=== PATIENT | male | born 1965 | race Caucasian/White ===

== ENCOUNTER 2018-05-11 12:26 | Emergency (ER) | payer OTHER ==
[2018-05-11] MEDS ORDERED: NA CHLORIDE 0.9% 1,000 ML ONE (14:02)
[2018-05-11 14:08] LABS: Absolute Lymphocytes (CBC) 0.6 K/uL (0.7-4.9); Absolute Monocytes 1.1 K/uL (0.1-1.3); Absolute Neutrophil 10.3 K/uL (1.8-8.0); Basophils % 0.3 % (0-1.3); Eosinophils % 0.2 % (0-4.4); Hematocrit 46.7 % (39.6-49.0); Lymphocytes % 4.7 % (15.3-44.8); MCH 31.1 pg (27.0-35.0); MCV 89.6 fL (80-100); MPV 8.7 fL (7.6-11.3); RBC Red Blood Cell Count 5.21 M/uL (4.33-5.43)
[2018-05-11 15:11] LABS: Potassium 4.4 mmol/L (3.5-5.1)
[2018-05-11 15:13] LABS: Blood Morphology Comment NOT SEEN (NOT SEEN); Platelet Estimate ADEQ; Urine White Blood Cell Casts OK
[2018-05-11] MEDS ORDERED: LORazepam 2 MG/ML VIAL ONE (16:26)
[2018-05-11] MEDS ORDERED: DEXAMETHASONE 10 MG/ML VIAL ONE (16:26)
--- NOTE | 2018-05-11 17:02 | RAD REPORT ---
EXAM DESCRIPTION: CT - Soft Tissue Neck W/Contr - 05/11/2018 4:48 pm CLINICAL HISTORY: Sore throat, left ear pain TECHNIQUE: During dynamic enhancement using 100 milliliters nonionic IV contrast, axial 5 millimeter thick images of the neck were obtained. All CT scans are performed using dose optimization technique as appropriate and may include automated exposure control or mA/KV adjustment according to patient size. FINDINGS: Intracranial portion of the examination is unremarkable. No globe or orbital content abnor mality. Mastoid air cells and paranasal sinuses are clear. No middle ear opacification. No vascular abnormality seen. The parotid, submandibular and thyroid gland tissues are normal. No nasopharyngeal mucosal abnormality. No epiglottis thickening. No tongue base abnormality. Right-si de tonsil is normal. Patient has prominent soft tissue swelling or thickening involving the left tons il and extending inferiorly along the lateral and midline posterior soft tissues. The soft tissue swe lling and thickening extend inferiorly to the level of the vocal cords. No vocal cord involvement. Ce ntrally within the soft tissue swelling is a 4 cm CC x 1.5 centimeter diameter focal fluid collection . No air in the soft tissues. No foreign body. There are multiple left-sided reactive lymph nodes 15 mm or less in size. IMPRESSION: 4 cm CC x 1.5 centimeter diameter abscess in the inferior left tonsil extending inferior ly in the left posterolateral pharyngeal soft tissues to the level of the vocal cords. No epiglottis or laryngeal involvement.
--- NOTE | 2018-05-11 17:45 | ER ---
Nurse's Notes [facility] Name: Tolu Washington Age: 53 yrs Sex: Male : 1965 Arrival Date: 05/11/2018 Time: 12:32 Bed 9 Private MD: Diagnosis: Retropharyngeal and parapharyngeal abscess Presentation: 05/11 12:33 Presenting complaint: Patient states: Sore throat and left ear pain 10/10 x 3 days. hb Seen at urgent care on Monday, flu and strep negative, started on amoxicillin, changed to clindamycin on Monday. Transition of care: patient was not received from another setting of care. Onset of symptoms was May 08, 2018. Risk Assessment: Do you want to hurt yourself or someone else? Patient reports no desire to harm self or others. Care prior to arrival: None. 12:33 Method Of Arrival: Ambulatory hb 12:33 Acuity: EMMY 3 iw 12:33 Initial Sepsis Screen: Does the patient meet any 2 criteria? Does the patient have a iw suspected source of infection? No. Patient's initial sepsis screen is negative. Triage Assessment: 18:04 General: Appears in no apparent distress. Behavior is calm, cooperative. iw Historical: - Allergies: 12:34 No Known Allergies; hb - Immunization history:: Adult Immunizations up to date. - Social history:: Smoking status: Patient/guardian denies using tobacco. - Ebola Screening: : No symptoms or risks identified at this time. Screenin:34 Abuse screen: Denies threats or abuse. Denies injuries from another. Nutritional hb screening: No deficits noted. Tuberculosis screening: No symptoms or risk factors identified. Fall Risk None identified. Assessment: 13:54 Reassessment: Patient appears in no apparent distress at this time. Patient and/or iw family updated on plan of care and expected duration. Pain level reassessed. IV in place, call light within reach, light dimmed for pr comfort. 16:06 Reassessment: Patient appears in no apparent distress at this time. Patient and/or iw family updated on plan of care and expected duration. Pain level reassessed. Patient is alert, oriented x 3, equal unlabored respirations, skin warm/dry/pink. pt denies need for pain medication at this time. 17:44 Reassessment: Patient appears in no apparent distress at this time. Patient and/or iw family updated on plan of care and expected duration. Pain level reassessed. Patient is alert, oriented x 3, equal unlabored respirations, skin warm/dry/pink. Patient states feeling better. 19:43 Reassessment: Patient appears in no apparent distress at this time. Patient is alert, aa1 oriented x 3, equal unlabored respirations, skin warm/dry/pink. [facility] present for pt transfer. Vital Signs: 12:32 BP 167 / 99; Pulse 86; Resp 18 S; Temp 97.3; Pulse Ox 97% on R/A; Pain 10/10; iw 16:06 BP 127 / 80; Pulse 77; Resp 16 S; Temp 99.1(O); Pulse Ox 97% on R/A; iw 19:43 BP 133 / 76; Pulse 76; Resp 16; Temp 98.9; Pulse Ox 97% on R/A; aa1 ED Course: 12:32 Patient arrived in ED. hb 12:33 Triage completed. hb 12:34 Arm band placed on left wrist. hb 12:35 Patient has correct armband on for positive identification. iw 12:39 Marlen Hector FNP-C is PHCP. snw 12:39 Juan Lott MD is Attending Physician. snw 13:32 Radiology exam delayed due to lab results not completed at this time. (BUN/Creatinine). vr 13:36 Diane Canales, RN is Primary Nurse. iw 13:45 Initial lab(s) drawn, by me, sent to lab. First set of blood cultures drawn. Inserted iw saline lock: 20 gauge in right antecubital area, using aseptic technique. Blood collected. 13:54 No provider procedures requiring assistance completed. iw 14:07 Radiology exam delayed due to lab results not completed at this time. (BUN/Creatinine). vr 14:32 Radiology exam delayed due to lab results not completed at this time. (BUN/Creatinine). nj 14:52 Radiology exam delayed due to lab results not completed at this time. (BUN/Creatinine). vr 14:57 Lab(s) recollected, by me, sent to lab. iw 16:49 CT completed. Patient tolerated procedure well. Patient moved to CT via wheelchair. tx Patient moved back from CT. 17:05 CT Soft Tissue Neck W/contr In Process Unspecified. EDMS 19:43 Patient transferred, IV remains in place. aa1 Administered Medications: 14:00 Drug: NS 0.9% 1000 ml Route: IV; Rate: 125 ml/hr; Site: right antecubital; hb 19:46 Follow up: IV Status: Infusion continued upon transfer aa1 16:25 Drug: Ativan 1 mg Route: IVP; Site: right antecubital; iw 19:46 Follow up: Response: No adverse reaction; Marked relief of symptoms aa1 16:25 Drug: Decadron - Dexamethasone 10 mg Route: IVP; Site: right antecubital; iw 19:46 Follow up: Response: No adverse reaction; Marked relief of symptoms aa1 Outcome: 17:44 ER care complete, transfer ordered by MD. snw 19:43 Transferred by ground EMS Transfer form completed. aa1 19:43 Condition: good 19:43 Instructed on the need for transfer, Demonstrated understanding of instructions. 19:46 Patient left the ED. aa1 Signatures: Dispatcher [employer] Geraldine Hutton RN RN aa1 Marlen Hector, HADOOP ADMINISTRATOR-C HADOOP ADMINISTRATOR-Csnw Diane Canales RN RN Rebecca Gil Heather, RN RN Amos Booth Corrections: (The following items were deleted from the chart) 12:36 12:33 Presenting complaint: Patient states: Sore throat and left ear pain 10/10 x 3 hb days hb 13:54 12:32 BP 167 / 99; Pulse 86bpm; Resp 84bpm; Pulse Ox 97% RA; Temp 97.3F; Pain 10/10; hb iw 17:44 17:44 Discharged to home with family, iw 1744 17:44 Condition: good iw 1744 17:44 Discharge instructions given to family, Instructed on discharge instructions, iw follow up and referral plans. Demonstrated understanding of instructions, follow-up care, 18:04 12:33 Acuity: EMMY 4 hb iw
--- NOTE | 2018-05-11 17:45 | EDPHYS ---
Physician Documentation [facility] Name: Tolu Washington Age: 53 yrs Sex: Male : 1965 Arrival Date: 05/11/2018 Time: 12:32 Bed 9 Private MD: ED Physician Juan Lott HPI: 05/11 15:01 This 53 yrs old Male presents to ER via Ambulatory with complaints of Ear snw Pain, Sore Throat. 15:01 The patient presents with pain, that is acute. The complaints affect the left ear. snw Onset: The symptoms/episode began/occurred gradually, 4 day(s) ago, and became worse and became persistent. Associated signs and symptoms: Pertinent positives: left lateral neck with tender anterior cervical lymph nodes. Severity of symptoms: At their worst the symptoms were moderate severe. The patient has not experienced similar symptoms in the past. x 2, started antibiotics and then it was changed to a different one. Historical: - Allergies: 12:34 No Known Allergies; hb - Immunization history:: Adult Immunizations up to date. - Social history:: Smoking status: Patient/guardian denies using tobacco. - Ebola Screening: : No symptoms or risks identified at this time. ROS: 15:00 Constitutional: Negative for fever, chills, and weight loss, Eyes: Negative for injury, snw pain, redness, and discharge, Cardiovascular: Negative for chest pain, palpitations, and edema, Respiratory: Negative for shortness of breath, cough, wheezing, and pleuritic chest pain, Abdomen/GI: Negative for abdominal pain, nausea, vomiting, diarrhea, and constipation, Back: Negative for injury and pain, : Negative for injury, bleeding, discharge, and swelling, MS/Extremity: Negative for injury and deformity, Skin: Negative for injury, rash, and discoloration, Neuro: Negative for headache, weakness, numbness, tingling, and seizure, Psych: Negative for depression, anxiety, suicide ideation, homicidal ideation, and hallucinations. 15:00 ENT: Positive for ear pain. 15:00 Neck: Positive for swollen nodes, tenderness. Exam: 14:47 Constitutional: This is a well developed, well nourished patient who is awake, alert, snw and in no acute distress. Head/Face: Normocephalic, atraumatic. Eyes: Pupils equal round and reactive to light, extra-ocular motions intact. Lids and lashes normal. Conjunctiva and sclera are non-icteric and not injected. Cornea within normal limits. Periorbital areas with no swelling, redness, or edema. Chest/axilla: Normal chest wall appearance and motion. Nontender with no deformity. No lesions are appreciated. Cardiovascular: Regular rate and rhythm with a normal S1 and S2. No gallops, murmurs, or rubs. Normal PMI, no JVD. No pulse deficits. Respiratory: Lungs have equal breath sounds bilaterally, clear to auscultation and percussion. No rales, rhonchi or wheezes noted. No increased work of breathing, no retractions or nasal flaring. Abdomen/GI: Soft, non-tender, with normal bowel sounds. No distension or tympany. No guarding or rebound. No evidence of tenderness throughout. Back: No spinal tenderness. No costovertebral tenderness. Full range of motion. Skin: Warm, dry with normal turgor. Normal color with no rashes, no lesions, and no evidence of cellulitis. MS/ Extremity: Pulses equal, no cyanosis. Neurovascular intact. Full, normal range of motion. Neuro: Awake and alert, GCS 15, oriented to person, place, time, and situation. Cranial nerves II-XII grossly intact. Motor strength 5/5 in all extremities. Sensory grossly intact. Cerebellar exam normal. Normal gait. Psych: Awake, alert, with orientation to person, place and time. Behavior, mood, and affect are within normal limits. 14:47 ENT: External ear(s): are unremarkable, Ear canal(s): are normal, TM's: are normal, Examination of the other ear shows no obvious abnormality, left post-auricular tenderness, Nose: is normal, Mouth: is normal, Posterior pharynx: erythema, Voice: is normal. 14:47 Neck: External neck: is normal, Thyroid: appears normal, Trachea: is midline with no obvious abnormalities, Lymph nodes: lymphadenopathy is appreciated, anterior cervical nodes, post auricular nodes, left. Vital Signs: 12:32 BP 167 / 99; Pulse 86; Resp 18 S; Temp 97.3; Pulse Ox 97% on R/A; Pain 10/10; iw 16:06 BP 127 / 80; Pulse 77; Resp 16 S; Temp 99.1(O); Pulse Ox 97% on R/A; iw 19:43 BP 133 / 76; Pulse 76; Resp 16; Temp 98.9; Pulse Ox 97% on R/A; aa1 MDM: 13:07 Patient medically screened. snw 15:35 Data reviewed: vital signs, nurses notes. Data interpreted: Pulse oximetry: on room air snw is 97 %. Interpretation: normal. 15:36 ED course: pt to CT via WC. snw 16:13 Physician consultation: Juan Lott MD in the emergency department to see patient at snw 16:13, encouraged pt to have scan as ordered, will pre-medicate. 17:42 Physician consultation: Dr. Hui Cardoso was called at 17:38, was contacted at 17:42, sn regarding regarding transfer, to [facility]. Dr. Cardoso (ENT) kindly accepts pt in transfer to ED. 05/11 13:23 Order name: CBC with Diff; Complete Time: 15:29 snw 05/11 13:23 Order name: Chem 7; Complete Time: 15:29 snw 05/11 13:23 Order name: CT Soft Tissue Neck W/contr; Complete Time: 17:24 snw 05/11 13:23 Order name: Blood Culture* snw 05/11 14:28 Order name: CBC Smear Scan; Complete Time: 15:29 EDMS Administered Medications: 14:00 Drug: NS 0.9% 1000 ml Route: IV; Rate: 125 ml/hr; Site: right antecubital; hb 19:46 Follow up: IV Status: Infusion continued upon transfer aa1 16:25 Drug: Ativan 1 mg Route: IVP; Site: right antecubital; iw 19:46 Follow up: Response: No adverse reaction; Marked relief of symptoms aa1 16:25 Drug: Decadron - Dexamethasone 10 mg Route: IVP; Site: right antecubital; iw 19:46 Follow up: Response: No adverse reaction; Marked relief of symptoms aa1 Disposition: 05/12 00:12 Co-signature as Attending Physician, Juan Lott MD I agree with the assessment and kdr plan of care. Disposition: 05/11/18 17:44 Transfer ordered to [facility]. Diagnosis is Retropharyngeal and parapharyngeal abscess. - Reason for transfer: Specialty. - Accepting physician is Dr. Hui Cardoso. - Condition is Stable. - Problem is an acute exacerbation. - Symptoms are unchanged. Signatures: Dispatcher [employer] Geraldine Hutton RN RN aa1 Juan Lott MD MD [facility] Marlen Hector, SAP MANAGER-C SAP MANAGER-Csnw Diane Canales RN RN Angella Castillo RN RN Corrections: (The following items were deleted from the chart) 05/11 19:46 17:44 05/11/2018 17:44 Transfer ordered to [facility]. aa1 Diagnosis is Retropharyngeal and parapharyngeal abscess. Reason for transfer: Specialty. Accepting physician is Dr. Hui Cardoso. Condition is Stable. Problem is an acute exacerbation. Symptoms are unchanged. snw
== END 2018-05-11 19:46 | disposition short-term general hospital (02) ==
LOC: ER 12:26
DX: J39.0 Retropharyngeal and parapharyngeal abscess (principal)
CPT/HCPCS: 36415; 70491; 80048; 85025; 87040; 96361; 96374; 96375; 99285; J1100; J7030; Q9967

== ENCOUNTER 2018-05-15 22:53 | Emergency (ER) | payer OTHER ==
--- OUTSIDE RECORDS SUMMARY | 2018-05-15 22:55 | XMS REPORT | Continuity of Care Document ---
:1965 Author Organization Interface Problems Problem Status Onset Classification Date Comments Source Date Reported RETROPHARYNGEAL Active 05/11/[address] Medications Medication Details Route Status Patient Ordering Order Source Instructions Provider Date Allergies, Adverse Reactions, Alerts Substance Category Reaction Severity Reaction Status Date Comments Source type Reported Immunizations Immunization Date Given Site Status Last Updated Comments Source Results Order Results Value Reference Date Interpretation Comments Source Name Range Vital Signs Vital Sign Value Date Comments Source Encounters Location Location Encounter Encounter Reason Attending ADM DC Status Source Details Type Number For Provider Date Date Visit Procedures Procedure Code Date Perfomer Comments Source
[2018-05-16] MEDS ORDERED: NA CHLORIDE 0.9% 1,000 ML ONE (00:51)
[2018-05-16 00:59] LABS: Absolute Lymphocytes (CBC) 0.7 K/uL (0.7-4.9); Absolute Monocytes 0.9 K/uL (0.1-1.3); Absolute Neutrophil 5.6 K/uL (1.8-8.0); Basophils % 0.4 % (0-1.3); Eosinophils % 2.2 % (0-4.4); Hematocrit 51.8 % (39.6-49.0); Lymphocytes % 9.6 % (15.3-44.8); MCV 89.4 fL (80-100); MPV 7.7 fL (7.6-11.3); Monocytes % 12.5 % (3.3-12.3)
[2018-05-16 01:00] LABS: Protime INR 1.09
[2018-05-16] MEDS ORDERED: DEXAMETHASONE 10 MG/ML VIAL ONE (01:07)
[2018-05-16] MEDS ORDERED: CLINDAMYCIN 900MG/D5W 900 MG/50 ML IVPB IV ONE (01:07)
[2018-05-16 01:17] LABS: Lipase 74 U/L (73-393); Magnesium 2.5 mg/dL (1.8-2.4); NT PRO-BNP 85 pg/mL (<125); Troponin (Emerg Dept Use Only) < 0.02 ng/mL (0.0-0.045)
[2018-05-16 01:18] LABS: Albumin 3.9 g/dL (3.4-5.0); Bilirubin Direct 0.2 mg/dL (0-0.2); Bilirubin Total 0.7 mg/dL (0.2-1.0); Potassium 4.1 mmol/L (3.5-5.1); Protein, Total 7.9 g/dL (6.4-8.2)
[2018-05-16] MEDS ORDERED: CEFTRIAXONE/SWI 1gm 1 GM/10 ML SYR ONE (01:20)
--- NOTE | 2018-05-16 01:26 | EDPHYS ---
Physician Documentation [facility] Name: Tolu Washington Age: 53 yrs Sex: Male : 1965 Arrival Date: 05/15/2018 Time: 22:53 Bed 17 Private MD: Ronan Gatica ED Physician Doyle Cordova HPI: 05/16 00:51 This 53 yrs old Male presents to ER via Ambulatory with complaints of Sore rocky Throat. 00:51 This 53 yrs old Male presents to ER via Ambulatory with complaints of Sore rocky Throat. 00:51 The patient presents with sore throat. The patient describes throat pain as raw. Onset: rocky The symptoms/episode began/occurred 2 day(s) ago. Severity of symptoms: At their worst the symptoms were mild, in the emergency department the symptoms are unchanged. Modifying factors: The symptoms are alleviated by nothing, the symptoms are aggravated by swallowing. Associated signs and symptoms: The patient has no apparent associated signs or symptoms. The patient has not experienced similar symptoms in the past. Historical: - Allergies: 05/15 23:20 No Known Allergies; fc - Home Meds: 23:20 losartan 50 mg oral tab 1 tab once daily [Active]; metoprolol tartrate 50 mg Oral tab 1 fc tab once daily [Active]; pantoprazole 40 mg oral TbEC 1 tab once daily [Active]; sertraline 100 mg oral tab 1 tab once daily [Active]; - PMHx: 23:20 Hypertension; GERD; Depression; fc - PSHx: 23:20 None; fc - Immunization history:: Last tetanus immunization: unknown, Flu vaccine is not up to date. - Social history:: Smoking status: Patient uses tobacco products, smokes one pack cigarettes per day. - Ebola Screening: : Patient negative for fever greater than or equal to 101.5 degrees Fahrenheit, and additional compatible Ebola Virus Disease symptoms Patient denies exposure to infectious person Patient denies travel to an Ebola-affected area in the 21 days before illness onset. - Family history:: not pertinent. ROS: 05/16 00:51 Constitutional: Negative for fever, chills, and weight loss, Eyes: Negative for injury, rocky pain, redness, and discharge, Neck: Negative for injury, pain, and swelling, Cardiovascular: Negative for chest pain, palpitations, and edema, Respiratory: Negative for shortness of breath, cough, wheezing, and pleuritic chest pain, Abdomen/GI: Negative for abdominal pain, nausea, vomiting, diarrhea, and constipation, Back: Negative for injury and pain, : Negative for injury, bleeding, discharge, and swelling, MS/Extremity: Negative for injury and deformity, Skin: Negative for injury, rash, and discoloration, Neuro: Negative for headache, weakness, numbness, tingling, and seizure, Psych: Negative for depression, anxiety, suicide ideation, homicidal ideation, and hallucinations, Allergy/Immunology: Negative for hives, rash, and allergies, Endocrine: Negative for neck swelling, polydipsia, polyuria, polyphagia, and marked weight changes, Hematologic/Lymphatic: Negative for swollen nodes, abnormal bleeding, and unusual bruising. ENT: Positive for sore throat. Exam: 00:51 Constitutional: This is a well developed, well nourished patient who is awake, alert, rocky and in no acute distress. Head/Face: Normocephalic, atraumatic. Eyes: Pupils equal round and reactive to light, extra-ocular motions intact. Lids and lashes normal. Conjunctiva and sclera are non-icteric and not injected. Cornea within normal limits. Periorbital areas with no swelling, redness, or edema. ENT: Nares patent. No nasal discharge, no septal abnormalities noted. Tympanic membranes are normal and external auditory canals are clear. Oropharynx with no redness, swelling, or masses, exudates, or evidence of obstruction, uvula midline. Mucous membranes moist. Neck: Trachea midline, no thyromegaly or masses palpated, and no cervical lymphadenopathy. Supple, full range of motion without nuchal rigidity, or vertebral point tenderness. No Meningismus. Chest/axilla: Normal chest wall appearance and motion. Nontender with no deformity. No lesions are appreciated. Cardiovascular: Regular rate and rhythm with a normal S1 and S2. No gallops, murmurs, or rubs. Normal PMI, no JVD. No pulse deficits. Respiratory: Lungs have equal breath sounds bilaterally, clear to auscultation and percussion. No rales, rhonchi or wheezes noted. No increased work of breathing, no retractions or nasal flaring. Abdomen/GI: Soft, non-tender, with normal bowel sounds. No distension or tympany. No guarding or rebound. No evidence of tenderness throughout. Back: No spinal tenderness. No costovertebral tenderness. Full range of motion. Male : Normal genitalia with no discharge or lesions. Skin: Warm, dry with normal turgor. Normal color with no rashes, no lesions, and no evidence of cellulitis. MS/ Extremity: Pulses equal, no cyanosis. Neurovascular intact. Full, normal range of motion. Neuro: Awake and alert, GCS 15, oriented to person, place, time, and situation. Cranial nerves II-XII grossly intact. Motor strength 5/5 in all extremities. Sensory grossly intact. Cerebellar exam normal. Normal gait. Psych: Awake, alert, with orientation to person, place and time. Behavior, mood, and affect are within normal limits. Vital Signs: 05/15 23:20 BP 114 / 90; Pulse 90; Resp 20; Temp 99.0(O); Pulse Ox 97% on R/A; Weight 122.47 kg (R); Height 6 ft. 2 in. (187.96 cm) (R); Pain 8/10; 05/16 00:56 BP 123 / 89; Pulse 87; Resp 20; Pulse Ox 97% on R/A; Pain 8/10; fc 01:12 BP 119 / 78; Pulse 76; Resp 18; Pulse Ox 98% on R/A; mt 01:30 BP 119 / 84; Pulse 74; Resp 20; Pulse Ox 97% ; Pain 6/10; fc 01:46 BP 109 / 78; Pulse 75; Resp 20; Temp 98.8; Pulse Ox 97% on R/A; Pain 6/10; fc 02:02 BP 115 / 84; Pulse 74; Resp 18; Temp 98.8; Pulse Ox 99% on R/A; Pain 6/10; fc 05/15 23:20 Body Mass Index 34.67 (122.47 kg, 187.96 cm) MDM: 00:29 Patient medically screened. [facility] 00:58 Data reviewed: vital signs, nurses notes, lab test result(s), EKG, radiologic studies. [facility] 05/16 00:29 Order name: CMP ls4 05/16 00:31 Order name: Basic Metabolic Panel [facility] 05/16 00:31 Order name: CBC with Diff [facility] 05/16 00: Order name: LFT's [facility] 05/16 00:31 Order name: Magnesium [facility] 05/16 00:31 Order name: NT PRO-BNP [facility] 05/16 00:31 Order name: PT-INR [facility] 05/16 00:31 Order name: Troponin (emerg Dept Use Only) [facility] 05/16 00:31 Order name: Lipase [facility] 05/16 00:31 Order name: Rapid Strep [facility] 05/16 00:33 Order name: CBC with Automated Diff [facility] 05/16 00:30 Order name: IV Start; Complete Time: 00:53 ls4 05/16 00:31 Order name: XRAY Chest (1 view) [facility] 05/16 00:31 Order name: EKG; Complete Time: 00:33 [facility] 05/16 00:31 Order name: Cardiac monitoring; Complete Time: 01:09 [facility] 05/16 00:31 Order name: EKG - Nurse/Tech; Complete Time: 01:09 [facility] 05/16 00:31 Order name: IV Saline Lock; Complete Time: 00:53 [facility] 05/16 00:33 Order name: Magnesium [facility] 05/16 00:52 Order name: Bilirubin Direct [facility] 05/16 01:50 Order name: Throat Culture [facility] 05/16 00:31 Order name: Labs collected and sent; Complete Time: 00:53 [facility] 05/16 00:31 Order name: O2 Per Protocol; Complete Time: 00:53 [facility] 05/16 00:31 Order name: O2 Sat Monitoring; Complete Time: 00:53 [facility] Administered Medications: 00:48 Drug: NS 0.9% 1000 ml Route: IV; Rate: 1 bolus; Site: right antecubital; ls4 01:45 Follow up: Response: No adverse reaction; No change in condition; IV Status: Completed fc infusion; IV Intake: 1000ml 00:49 CANCELLED (Duplicate Order): NS 0.9% 1000 ml IV at 125 ml/hr continuous ls4 01:08 Drug: Decadron - Dexamethasone 10 mg Route: IVP; Site: right antecubital; fc 01:22 Follow up: Response: No adverse reaction; No change in condition fc 01:08 Drug: Clindamycin 900 mg Route: IVPB; Infused Over: 30 mins; Site: right antecubital; 01:35 Follow up: Response: No adverse reaction; No change in condition; IV Status: Completed fc infusion; IV Intake: 50ml 01:35 Drug: Rocephin - (cefTRIAXone) 1 grams Route: IVPB; Infused Over: 30 mins; Site: right fc antecubital; 01:45 Follow up: IV Status: Completed infusion 01:45 Follow up: Response: No adverse reaction; No change in condition Disposition: 05/16/18 01:26 Patient has left against medical advice. Impression: Acute pharyngitis. - Patients states they are going to Home. - Condition is Stable. - Discharge Instructions: Pharyngitis, Retropharyngeal Abscess, Pharyngitis, [id number]. Follow up: Ronan Gatica MD; When: Upon discharge from the Emergency Department; Reason: Recheck today's complaints, Continuance of care, Re-evaluation by your physician. Follow up: Abril Thornton MD; When: As needed; Reason: Recheck today's complaints, Continuance of care, Re-evaluation by your physician. - Problem is new. - Symptoms have improved. Signatures: Dispatcher [employer] [facility] Doyle Cordova MD MD cha Chretien, Felicia, RN RN fc Stewart, Lisa, RN RN ls4 Corrections: (The following items were deleted from the chart) 00:42 00:30 Soft Tissue Neck W/Contr+CT.RAD.BRZ ordered. [facility] 00:49 00:31 NS 0.9% 1000 ml IV at 125 ml/hr continuous ordered. rocky santos 00:52 00:33 Basic Metabolic Panel ordered. [facility] 00:52 00:33 Liver (Hepatic) Function ordered. [facility] 01:09 00:30 CBC+H.LAB.BRZ ordered. [facility] 01:28 00:33 Soft Tissue Neck W/Contr+CT.RAD.BRZ ordered. [facility] 02:16 01:26 05/16/2018 01:26 Patients has left against medical advice. Impression: Acute fc pharyngitis. Patient states they are going to Home. Condition is Stable. Follow up: Ronan Gatica; When: Upon discharge from the Emergency Department; Reason: Recheck today's complaints, Continuance of care, Re-evaluation by your physician. Follow up: Abril Thornton; When: As needed; Reason: Recheck today's complaints, Continuance of care, Re-evaluation by your physician. Problem is new. Symptoms have improved. rocky
--- NOTE | 2018-05-16 01:26 | ER ---
Nurse's Notes [facility] Name: Tolu Washington Age: 53 yrs Sex: Male : 1965 Arrival Date: 05/15/2018 Time: 22:53 Bed 17 Private MD: Ronan Gatica Diagnosis: Acute pharyngitis Presentation: 05/15 23:15 Presenting complaint: Patient states: that he is having sore throat and ear pain since Monday morning. Also has headache and feels as if he has a fever. On Monday he had an abscess in his throat drained at [place]. Thinks that maybe it is back. Placed on Amoxicillin. Transition of care: patient was not received from another setting of care. Onset of symptoms was May 14, 2018. Risk Assessment: Do you want to hurt yourself or someone else? Patient reports no desire to harm self or others. Initial Sepsis Screen: Does the patient meet any 2 criteria? No. Patient's initial sepsis screen is negative. Does the patient have a suspected source of infection? No. Patient's initial sepsis screen is negative. Care prior to arrival: Medication(s) given: Ultracet at 1500. 23:15 Method Of Arrival: Ambulatory 23:15 Acuity: EMMY 3 fc Historical: - Allergies: 23:20 No Known Allergies; - Home Meds: 23:20 losartan 50 mg oral tab 1 tab once daily [Active]; metoprolol tartrate 50 mg Oral tab 1 fc tab once daily [Active]; pantoprazole 40 mg oral TbEC 1 tab once daily [Active]; sertraline 100 mg oral tab 1 tab once daily [Active]; - PMHx: 23:20 Hypertension; GERD; Depression; fc - PSHx: 23:20 None; fc - Immunization history:: Last tetanus immunization: unknown, Flu vaccine is not up to date. - Social history:: Smoking status: Patient uses tobacco products, smokes one pack cigarettes per day. - Ebola Screening: : Patient negative for fever greater than or equal to 101.5 degrees Fahrenheit, and additional compatible Ebola Virus Disease symptoms Patient denies exposure to infectious person Patient denies travel to an Ebola-affected area in the 21 days before illness onset. - Family history:: not pertinent. Screenin:56 Abuse screen: Denies threats or abuse. Denies injuries from another. Nutritional ls4 screening: No deficits noted. Tuberculosis screening: No symptoms or risk factors identified. Fall Risk None identified. Assessment: 23:54 General: Appears uncomfortable, Behavior is cooperative. Pain: Complains of pain in ls4 left aspect of posterior pharynx Pain currently is 7 out of 10 on a pain scale. Respiratory: Airway is patent Respiratory effort is even, unlabored, Breath sounds are clear bilaterally. EENT: Throat is reddened Reports pain in uvula, left aspect of posterior pharynx and right aspect of posterior pharynx Denies. 05/16 00:54 General: Appears uncomfortable, obese, Behavior is calm, cooperative, appropriate for fc age. Pain: Complains of pain in throat Quality of pain is described as burning, Is continuous, Aggravated by eating, drinking. Neuro: Level of Consciousness is awake, alert, obeys commands, Oriented to person, place, time, situation. Cardiovascular: No deficits noted. Respiratory: Airway is patent Trachea midline Respiratory effort is even, unlabored, Respiratory pattern is regular, symmetrical. GI: No deficits noted. : No deficits noted. EENT: Throat is reddened Reports pain when swallowing. Derm: Skin is pink, warm \T\ dry. Musculoskeletal: Circulation, motion, and sensation intact. Capillary refill < 3 seconds, Range of motion: intact in all extremities. 01:29 Reassessment: Pt has refused to do Ct Scan. Dr Cordova notified and will have pt sign fc AMA. 01:36 Reassessment: Pt aware of needing to sign out AMA and understands. fc 01:50 Reassessment: Dr Cordova in to speak with pt and discuss need for continued care. Pt fc verbalizes understanding. Vital Signs: 05/15 23:20 BP 114 / 90; Pulse 90; Resp 20; Temp 99.0(O); Pulse Ox 97% on R/A; Weight 122.47 kg fc (R); Height 6 ft. 2 in. (187.96 cm) (R); Pain 8/10; 05/16 00:56 BP 123 / 89; Pulse 87; Resp 20; Pulse Ox 97% on R/A; Pain 8/10; fc 01:12 BP 119 / 78; Pulse 76; Resp 18; Pulse Ox 98% on R/A; mt 01:30 BP 119 / 84; Pulse 74; Resp 20; Pulse Ox 97% ; Pain 6/10; fc 01:46 BP 109 / 78; Pulse 75; Resp 20; Temp 98.8; Pulse Ox 97% on R/A; Pain 6/10; fc 02:02 BP 115 / 84; Pulse 74; Resp 18; Temp 98.8; Pulse Ox 99% on R/A; Pain 6/10; fc 05/15 23:20 Body Mass Index 34.67 (122.47 kg, 187.96 cm) fc ED Course: 05/15 22:53 Patient arrived in ED. mr 22:54 Ronan Gatica MD is Private Physician. mr 23:18 Triage completed. fc 23:20 Arm band placed on Patient placed in an exam room, on a stretcher. fc 23:26 Kevin Trinidad, RN is Primary Nurse. mg2 23:54 Natalia Simmons, BASILIO is Primary Nurse. ls4 23:56 Patient has correct armband on for positive identification. Bed in low position. Call ls4 light in reach. Side rails up X 1. 23:56 No provider procedures requiring assistance completed. ls4 1212 00:29 Doyle Cordova MD is Attending Physician. rocky 00:50 Initial lab(s) drawn, by me. Inserted saline lock: 20 gauge in right antecubital area, ls4 using aseptic technique. Blood collected. 01:02 X-ray completed. Portable x-ray completed in exam room. Patient tolerated procedure kw well. 01:03 XRAY Chest (1 view) In Process Unspecified. EDMS 01:05 Radiology exam delayed due to lab results not completed at this time. (BUN/Creatinine). kw1 01:25 Ronan Gatica MD is Referral Physician. rocky 01:25 Abril Thornton MD is Referral Physician. rocky 02:03 IV discontinued, intact, bleeding controlled, No redness/swelling at site. Pressure fc dressing applied. Administered Medications: 00:48 Drug: NS 0.9% 1000 ml Route: IV; Rate: 1 bolus; Site: right antecubital; ls4 01:45 Follow up: Response: No adverse reaction; No change in condition; IV Status: Completed fc infusion; IV Intake: 1000ml 00:49 CANCELLED (Duplicate Order): NS 0.9% 1000 ml IV at 125 ml/hr continuous ls4 01:08 Drug: Decadron - Dexamethasone 10 mg Route: IVP; Site: right antecubital; 01:22 Follow up: Response: No adverse reaction; No change in condition 01:08 Drug: Clindamycin 900 mg Route: IVPB; Infused Over: 30 mins; Site: right antecubital; 01:35 Follow up: Response: No adverse reaction; No change in condition; IV Status: Completed infusion; IV Intake: 50ml 01:35 Drug: Rocephin - (cefTRIAXone) 1 grams Route: IVPB; Infused Over: 30 mins; Site: right fc antecubital; 01:45 Follow up: IV Status: Completed infusion fc 01:45 Follow up: Response: No adverse reaction; No change in condition fc Intake: 01:35 IV: 50ml; Total: 50ml. 01:45 IV: 1000ml; Total: 1050ml. Outcome: 01:47 Discharged to home ambulatory. 01:47 Condition: good 01:47 Discharge instructions given to patient, Instructed on discharge instructions, follow up and referral plans. no drinking with medication, no driving heavy equipment, medication usage, Demonstrated understanding of instructions, follow-up care, medications, Prescriptions given X none 02:16 Patient left the ED. Signatures: Dispatcher [employer] EDMS Doyle Cordova MD MD cha Rivera, Mary mr Chretien, Felicia, RN RN [facility] TobinСветлана [facility] Kevin Trinidad RN RN [facility] Natalia Simmons RN RN ls4 Corrections: (The following items were deleted from the chart) 05/15 23:38 23:15 Care prior to arrival: None. [facility] 05/16 02:03 02:02 BP 115 / 84; Pulse 74bpm; Resp 18bpm; Pulse Ox 99% RA; mt
--- NOTE | 2018-05-16 06:57 | EKG ---
Test Date: 2018-05-16 Test Time: 00:59:37 Track Repair Supervisor: PAVAN MEASUREMENT RESULTS: Intervals: Rate: 96 RI: 162 QRSD: 76 QT: 350 QTc: 442 [place]: P: 48 RI: 162 QRS: 8 T: 28 INTERPRETIVE STATEMENTS: Normal sinus rhythm Normal ECG No previous ECG available for comparison Electronically Signed On 05-16-18 06:57:28 SYSTEMS ADMINISTRATOR by Mahendra Robles
--- NOTE | 2018-05-16 07:50 | RAD REPORT ---
EXAM DESCRIPTION: [place] Single View05/16/2018 1:03 am CLINICAL HISTORY: Cough COMPARISON: none FINDINGS: The lungs appear clear of acute infiltrate. The heart is normal size IMPRESSION: No acute abnormalities displayed
== END 2018-05-16 02:16 | disposition left against medical advice (07) ==
LOC: ER 22:53
DX: J02.9 Acute pharyngitis, unspecified (principal); I10 Essential (primary) hypertension; F32.9 Major depressive disorder, single episode, unspecified; F17.210 Nicotine dependence, cigarettes, uncomplicated
CPT/HCPCS: 36415; 71045; 80053; 82248; 83690; 83735; 83880; 84484; 85025; 85610; 87070; 87081; 93005; 96365; 96375; 99284; J0696; J1100; J7030

== ENCOUNTER 2023-08-02 10:19 | Day surgery (SDC) | payer BC ==
[2023-08-02] MEDS: NA CHLORIDE 0.9% 1,000 ML ONE (10:40)
[2023-08-02 11:01] LABS: Protime INR 1.01
[2023-08-02 11:25] LABS: Absolute Lymphocytes (CBC) 0.7 K/uL (0.7-4.9); Hematocrit 48.8 % (39.6-49.0); Lymphocytes % 9.9 % (15.3-44.8); MCV 92.7 fL (80-100); MPV 7.7 fL (7.6-11.3); Platelets 197 thou/uL (152-406); RBC Red Blood Cell Count 5.26 M/uL (4.33-5.43)
[2023-08-02] MEDS ORDERED: MIDAZOLAM HCL 2 MG/2 ML INJ ONE (11:37)
[2023-08-02] MEDS ORDERED: FENTANYL CITR 100 MCG/2 ML ONE (11:37)
[2023-08-02] MEDS ORDERED: NALOXONE HCL 2 MG/2 ML VIAL ONE (11:37)
[2023-08-02] MEDS ORDERED: FLUMAZENIL 0.1 MG/ML (5 mL VIAL) IV ONE (12:00)
[2023-08-02] MEDS: HYDROCODONE/APAP 7.5/325 MG TAB ONE (13:39)
--- NOTE | 2023-08-02 14:20 | RAD REPORT ---
EXAM DESCRIPTION: RAD - Chest Single View - 08/02/2023 2:15 pm CLINICAL HISTORY: S/P LEFT UPPER LUNG BX Chest pain. COMPARISON: Chest Pa And Lat (2 Views) dated 07/17/2023; Chest Pa And Lat (2 Views) dated 10/29/2020; Chest Single View dated 05/16/2018 FINDINGS: Portable technique limits examination quality. No measurable postprocedure pneumothorax is seen. Opacity in the left upper lobe laterally is noted. The lungs are otherwise grossly clear. The heart is mildly enlarged in size. IMPRESSION: No postprocedure pneumothorax.
[2023-08-02 15:03] VITALS: BMI 34.7
--- NOTE | 2023-08-02 15:27 | RAD REPORT ---
EXAM DESCRIPTION: RAD - Chest Single View - 08/02/2023 3:21 pm CLINICAL HISTORY: S/P LEFT UPPER LUNG BX Chest pain. COMPARISON: Chest Single View dated 08/02/2023; Chest Pa And Lat (2 Views) dated 07/17/2023; Chest Pa And Lat (2 Views) dated 10/29/2020; Chest Single View dated 05/16/2018 FINDINGS: Portable technique limits examination quality. No postprocedure pneumothorax is seen. Mild opacity in the left upper lobe laterally appears less pro minent than on prior study. The heart is mildly enlarged. No displaced fractures. IMPRESSION: No postprocedure pneumothorax.
[2023-08-02 15:49] VITALS: BP 131/80; TEMP 97; O2SAT 95
--- NOTE | 2023-08-02 17:11 | RAD REPORT ---
EXAM DESCRIPTION: CT - Lung Biopsy Perc w/CT - 08/02/2023 1:04 pm CLINICAL HISTORY: D86.0 COMPARISON: Chest Single View dated 08/02/2023; Chest Single View dated 08/02/2023 FINDINGS: Preoperative diagnosis: Left upper lobe nodule Post operative diagnosis: Same Conscious Sedation: 1 milligram Versed, 50 mcg Fentanyl. Patient was continuously monitored by nursing staff. Contrast used: NONE Estimated blood loss: less than 5 mL Specimens: 5 core samples of the left upper lobe nodule Postprocedure imaging demonstrated no complications. Samples were given to pathology for analysis. Th e patient tolerated the procedure without immediate complication and transferred to the recovery room in stable condition. IMPRESSION: Technically successful CT-guided biopsy of a left upper lobe nodule. No immediate compli cations. Conscious sedation was utilized. All CT scans are performed using dose optimization technique as appropriate and may include automated exposure control or mA/KV adjustment according to patient size.
== END 2023-08-02 15:44 | disposition home or self-care (01) ==
LOC: DS 10:19
PROVIDERS: ATTEND Internal Medicine Sleep Medicine
PROC: 0BBG3ZX Excision of Left Upper Lung Lobe, Percutaneous Approach, Diagnostic (ICD-10-PCS; principal; 2023-08-02)
DX: D86.0 Sarcoidosis of lung (principal)
CPT/HCPCS: 36415; 71045; 77012; 85025; 85610; 85730; 88305; 88312; J2250; J2310; J3010; J7030